=== PATIENT | female | born 1940 | race Caucasian/White ===

== ENCOUNTER 2019-06-13 21:24 | Inpatient (IN) ==
[2019-06-13] MEDS ORDERED: 0.9 % Sodium Chloride 1,000 ML IV ONE (21:49)
[2019-06-13 22:14] LABS: Basophils % 0.3 %; Eosinophils # 0.2 K/mcL (0.0-0.6); Eosinophils % 1.1 %; Hematocrit 30.5 % (35.3-44.9); Immature Granulocytes % 1.1 % (0-4); Lymphocytes # 2.2 K/mcL (0.6-4.6); Lymphocytes % 14.9 %; Mean Corpuscular HGB Conc 32.8 g/dL (31.6-35.5); Mean Corpuscular Hemoglobin 26.7 pg (28.0-33.3); Mean Corpuscular Volume 81.6 fL (83.0-100.0); Mean Platelet Volume 8.6 fL (9.4-12.4); Monocytes % 13.5 %; Neutrophils # 10.3 K/mcL (1.6-8.9); Platelet Count 294 K/mcL (140-400); Red Blood Count 3.74 M/mcL (3.82-4.97); Red Cell Distribution Width 16.8 % (11.5-14.5); Segmented Neutrophils % 69.1 %; White Blood Count 14.9 K/mcL (4.3-11.1)
[2019-06-13 22:17] LABS: Bilirubin,Urine Negative (Negative); Blood,Urine Trace-intact (Negative); Clarity,Urine Cloudy (Clear); Color,Urine Yellow (Yellow); Glucose,Urine (UA) Normal (Normal); Ketones,Urine Negative (Negative); Leukocyte Esterase,Urine Moderate (Negative); Nitrite,Urine Negative (Negative); Protein,Urine 30 mg/dL (Neg-Trace); Specific Gravity,Urine 1.015 (1.010-1.025); Urobilinogen,Urine Normal (Normal)
[2019-06-13 22:21] LABS: INR 1.2; Prothrombin Time 13.5 Seconds (9.4-12.1)
[2019-06-13 22:24] LABS: Bacteria,Urine Many per hpf (None-Few); RBC,Urine 0-3 per hpf (0-3); Squamous Epithelial Cell,Urine Few per lpf (None-Few); WBC,Urine 30-50 per hpf (0-3)
[2019-06-13 22:30] LABS: Albumin 3.7 g/dL (3.5-5.7); Albumin/Globulin Ratio 0.9 (1.1-2.2); Bilirubin,Total 0.5 mg/dL (0.3-1.0); Calcium 8.6 mg/dL (8.6-10.3); Globulin 3.9 g/dL (2.4-3.5); Magnesium 2.1 mg/dL (1.6-2.6); Potassium 3.5 mEq/L (3.5-5.1); Total Protein 7.6 g/dL (6.4-8.9)
[2019-06-14] MEDS ORDERED: *HR* Enoxaparin 100 MG/ML SYRINGE SQ SCH (00:30)
[2019-06-14] MEDS ORDERED: 0.9 % Sodium Chloride 1,000 ML IVC SCH (00:30)
[2019-06-14] MEDS ORDERED: Naloxone 0.4 MG/ML INJ IVP PRN (04:52)
[2019-06-14] MEDS: Acetaminophen 325 MG TABLET PO PRN ×3 (06:34→16:09)
[2019-06-14] MEDS: Levothyroxine 25 MCG TABLET PO SCH (06:34)
[2019-06-14] MEDS ORDERED: *HR* Enoxaparin 30 MG/0.3 ML SYRINGE SQ SCH (07:00)
[2019-06-14] MEDS ORDERED: Famotidine 20 MG TABLET PO SCH (07:30)
[2019-06-14] MEDS: Fenofibrate 54 MG TABLET PO SCH (08:18)
[2019-06-14] MEDS: Divalproex Sodium 125 MG CAPSULE PO SCH ×2 (08:18→20:45)
[2019-06-14] MEDS: Aspirin Enteric Coated 81 MG Tablet PO SCH (08:18)
[2019-06-14] MEDS: Gabapentin 300 MG CAPSULE PO SCH ×2 (08:18→14:59)
[2019-06-14] MEDS: Isosorbide MONOnitrate (24 HR) 30 MG TAB.ER.24H PO SCH (08:19)
[2019-06-14] MEDS: Loratadine 10 MG TABLET PO SCH (08:19)
[2019-06-14] MEDS: Metoprolol XL (24 HR) Succ 25 MG TAB.ER.24H PO SCH (08:19)
[2019-06-14] MEDS: Lubiprostone [Amitiza] 24 MCG PO SCH ×2 (08:20→20:50)
[2019-06-14] MEDS: 0.9 % Sodium Chloride 1,000 ML IVC SCH ×2 (08:20→18:13)
[2019-06-14] MEDS: Insulin LISPRO 300 UNITS/3 ML VIAL SQ SCH ×3 (08:20→16:48)
[2019-06-14] MEDS: Venlafaxine XR (24 HR) 37.5 MG CAP.ER.24H PO SCH (09:00)
[2019-06-14] MEDS ORDERED: *HR* SitaGLIPtin 25 MG TABLET PO SCH (09:00)
[2019-06-14] MEDS: *HR* Enoxaparin 80 MG/0.8 ML SYRINGE SQ SCH (09:00)
[2019-06-14] MEDS: cloZAPine 100 MG TABLET PO SCH ×3 (09:00→20:46)
[2019-06-14] MEDS ORDERED: Furosemide 40 MG TABLET PO SCH (09:00)
[2019-06-14 10:14] LABS: Hematocrit 26.4 % (35.3-44.9); Hemoglobin 8.3 g/dL (11.5-15.4); Mean Corpuscular HGB Conc 31.4 g/dL (31.6-35.5); Mean Corpuscular Volume 82.8 fL (83.0-100.0); Mean Platelet Volume 8.8 fL (9.4-12.4); Platelet Count 243 K/mcL (140-400); Red Blood Count 3.19 M/mcL (3.82-4.97); Red Cell Distribution Width 16.8 % (11.5-14.5); White Blood Count 14.4 K/mcL (4.3-11.1)
[2019-06-14 10:55] LABS: Calcium 7.8 mg/dL (8.6-10.3)
[2019-06-14] MEDS: cefTRIAXone 1,000 MG in 0.9 % Sodium Chloride Mini Bag 100 ML IVPB SCH (13:15)
[2019-06-14] MEDS ORDERED: *HR* Dextrose 50 % in Water (Vial) 50 ML VIAL IVP PRN (15:05)
[2019-06-14] MEDS ORDERED: D5% in Water 1,000 ML IVC PRN (15:05)
[2019-06-14] MEDS ORDERED: Dextrose Gel 15 GM/37.5 ML TUBE PO PRN ×2 (15:05)
[2019-06-14] MEDS: Famotidine 20 MG TABLET PO SCH (16:08)
[2019-06-14] MEDS ORDERED: 0.9 % Sodium Chloride 1,000 ML IVC ONE (16:19)
[2019-06-14] MEDS: Ibuprofen 600 MG TABLET PO PRN (20:45)
[2019-06-14] MEDS: Melatonin 3 MG TABLET PO SCH (20:45)
[2019-06-14 22:54] LABS: Enterococcus by PCR Not Detected (Not Detect); Staphylococcus aureus by PCR Not Detected (Not Detect); Staphylococcus by PCR Not Detected (Not Detect); blaKPC Carbapenem-Resist Gene Not Detected (Not Detect)
[2019-06-14 22:55] LABS: Acinetobacter baumannii by PCR Not Detected (Not Detect); Candida albicans by PCR Not Detected (Not Detect); Candida glabrata by PCR Not Detected (Not Detect); Candida krusei by PCR Not Detected (Not Detect); Candida parapsilosis by PCR Not Detected (Not Detect); Candida tropicalis by PCR Not Detected (Not Detect); Enterobacter cloacae Cmplx PCR Not Detected (Not Detect); Escherichia coli by PCR DETECTED (Not Detect); Klebsiella oxytoca by PCR Not Detected (Not Detect); Klebsiella pneumoniae by PCR Not Detected (Not Detect); Proteus by PCR Not Detected (Not Detect); Pseudomonas aeruginosa by PCR Not Detected (Not Detect); Serratia marcescens by PCR Not Detected (Not Detect); Streptococcus agalactiae(B)PCR Not Detected (Not Detect); Streptococcus by PCR Not Detected (Not Detect); Streptococcus pneumoniae PCR Not Detected (Not Detect); Streptococcus pyogenes (A) PCR Not Detected (Not Detect)
[2019-06-15] MEDS: 0.9 % Sodium Chloride 1,000 ML IVC SCH ×5 (02:21→18:41)
[2019-06-15] MEDS: Levothyroxine 25 MCG TABLET PO SCH (05:07)
[2019-06-15 06:26] LABS: Hematocrit 28.8 % (35.3-44.9); Hemoglobin 8.6 g/dL (11.5-15.4); Mean Corpuscular HGB Conc 29.9 g/dL (31.6-35.5); Mean Corpuscular Hemoglobin 26.3 pg (28.0-33.3); Mean Corpuscular Volume 88.1 fL (83.0-100.0); Mean Platelet Volume 8.9 fL (9.4-12.4); Platelet Count 198 K/mcL (140-400); Red Blood Count 3.27 M/mcL (3.82-4.97); Red Cell Distribution Width 16.9 % (11.5-14.5)
[2019-06-15 06:49] LABS: Calcium 7.8 mg/dL (8.6-10.3); Potassium 3.6 mEq/L (3.5-5.1)
[2019-06-15] MEDS: Insulin LISPRO 300 UNITS/3 ML VIAL SQ SCH ×4 (08:15→16:09)
[2019-06-15] MEDS: Venlafaxine XR (24 HR) 37.5 MG CAP.ER.24H PO SCH (10:12)
[2019-06-15] MEDS: cefTRIAXone 1,000 MG in 0.9 % Sodium Chloride Mini Bag 100 ML IVPB SCH (10:12)
[2019-06-15] MEDS: cloZAPine 100 MG TABLET PO SCH ×3 (10:12→19:55)
[2019-06-15] MEDS: Aspirin Enteric Coated 81 MG Tablet PO SCH (10:13)
[2019-06-15] MEDS: Isosorbide MONOnitrate (24 HR) 30 MG TAB.ER.24H PO SCH (10:13)
[2019-06-15] MEDS: Loratadine 10 MG TABLET PO SCH (10:13)
[2019-06-15] MEDS: Divalproex Sodium 125 MG CAPSULE PO SCH ×2 (10:13→19:55)
[2019-06-15] MEDS: Fenofibrate 54 MG TABLET PO SCH (10:13)
[2019-06-15] MEDS: Famotidine 20 MG TABLET PO SCH ×2 (10:13→15:04)
[2019-06-15] MEDS: Metoprolol XL (24 HR) Succ 25 MG TAB.ER.24H PO SCH (10:14)
[2019-06-15] MEDS: Lubiprostone [Amitiza] 24 MCG PO SCH ×2 (10:36→19:55)
[2019-06-15] MEDS: *HR* Enoxaparin 80 MG/0.8 ML SYRINGE SQ SCH (11:31)
[2019-06-15] MEDS: Acetaminophen 325 MG TABLET PO PRN ×2 (11:49→18:39)
[2019-06-15 16:44] LABS: Sodium, Urine 91.9 mEq/L
[2019-06-15] MEDS ORDERED: cefTRIAXone 2,000 MG in 0.9 % Sodium Chloride Mini Bag 100 ML IVPB SCH (18:00)
[2019-06-15] MEDS: Ibuprofen 600 MG TABLET PO PRN (19:54)
[2019-06-15] MEDS: Melatonin 3 MG TABLET PO SCH (19:54)
[2019-06-16] MEDS: *HR* Heparin 5,000 UNIT/ML VIAL SQ SCH ×4 (00:40→22:20)
[2019-06-16] MEDS: 0.9 % Sodium Chloride 1,000 ML IVC SCH ×3 (03:00→23:16)
[2019-06-16] MEDS: Levothyroxine 25 MCG TABLET PO SCH (06:27)
[2019-06-16 07:17] LABS: Hematocrit 23.8 % (35.3-44.9); Hemoglobin 7.6 g/dL (11.5-15.4); Mean Corpuscular HGB Conc 31.9 g/dL (31.6-35.5); Mean Corpuscular Hemoglobin 26.7 pg (28.0-33.3); Mean Corpuscular Volume 83.5 fL (83.0-100.0); Mean Platelet Volume 8.9 fL (9.4-12.4); Platelet Count 180 K/mcL (140-400); Red Blood Count 2.85 M/mcL (3.82-4.97); White Blood Count 10.1 K/mcL (4.3-11.1)
[2019-06-16 07:28] LABS: Calcium 7.8 mg/dL (8.6-10.3); Potassium 3.4 mEq/L (3.5-5.1)
[2019-06-16] MEDS: Insulin LISPRO 300 UNITS/3 ML VIAL SQ SCH ×3 (09:44→16:47)
[2019-06-16] MEDS: Lubiprostone [Amitiza] 24 MCG PO SCH ×2 (09:45→20:13)
[2019-06-16] MEDS: cloZAPine 100 MG TABLET PO SCH ×3 (09:50→20:02)
[2019-06-16] MEDS: Metoprolol XL (24 HR) Succ 25 MG TAB.ER.24H PO SCH (09:50)
[2019-06-16] MEDS: Fenofibrate 54 MG TABLET PO SCH (09:50)
[2019-06-16] MEDS: Divalproex Sodium 125 MG CAPSULE PO SCH ×2 (09:51→20:02)
[2019-06-16] MEDS: Isosorbide MONOnitrate (24 HR) 30 MG TAB.ER.24H PO SCH (09:51)
[2019-06-16] MEDS: Loratadine 10 MG TABLET PO SCH (09:51)
[2019-06-16] MEDS: Venlafaxine XR (24 HR) 37.5 MG CAP.ER.24H PO SCH (09:51)
[2019-06-16] MEDS: Aspirin Enteric Coated 81 MG Tablet PO SCH (09:52)
[2019-06-16] MEDS: Famotidine 20 MG TABLET PO SCH ×2 (09:54→14:55)
[2019-06-16] MEDS ORDERED: cefTRIAXone 2,000 MG in 0.9 % Sodium Chloride Mini Bag 100 ML IVPB SCH (11:00)
[2019-06-16] MEDS ORDERED: Gentamicin 70 MG in 0.9 % Sodium Chloride 100 ML IVPB ONE (16:00)
[2019-06-16 16:06] LABS: Hematocrit 29.4 % (35.3-44.9); Hemoglobin 9.4 g/dL (11.5-15.4)
[2019-06-16] MEDS ORDERED: Haloperidol Lactate 5 MG/ML VIAL IVP ONE (16:27)
[2019-06-16 19:16] LABS: Hematocrit 26.6 % (35.3-44.9); Hemoglobin 8.5 g/dL (11.5-15.4)
[2019-06-16] MEDS: Melatonin 3 MG TABLET PO SCH (20:02)
[2019-06-16] MEDS: Nystatin Cream 15 GM TUBE TP SCH (20:13)
[2019-06-16] MEDS: Acetaminophen 325 MG TABLET PO PRN (23:14)
[2019-06-17] MEDS: Levothyroxine 25 MCG TABLET PO SCH (05:29)
[2019-06-17 06:05] LABS: Hematocrit 23.3 % (35.3-44.9); Hemoglobin 7.3 g/dL (11.5-15.4); Mean Corpuscular HGB Conc 31.3 g/dL (31.6-35.5); Mean Corpuscular Hemoglobin 25.9 pg (28.0-33.3); Mean Corpuscular Volume 82.6 fL (83.0-100.0); Mean Platelet Volume 9.1 fL (9.4-12.4); Platelet Count 230 K/mcL (140-400); Red Blood Count 2.82 M/mcL (3.82-4.97); White Blood Count 12.1 K/mcL (4.3-11.1)
[2019-06-17 06:25] LABS: Calcium 7.8 mg/dL (8.6-10.3); Potassium 3.7 mEq/L (3.5-5.1)
[2019-06-17] MEDS: Famotidine 20 MG TABLET PO SCH ×3 (07:30→17:23)
[2019-06-17] MEDS: Insulin LISPRO 300 UNITS/3 ML VIAL SQ SCH ×3 (08:00→16:32)
[2019-06-17] MEDS: *HR* Heparin 5,000 UNIT/ML VIAL SQ SCH ×3 (08:00→23:18)
[2019-06-17] MEDS: Aspirin Enteric Coated 81 MG Tablet PO SCH (09:00)
[2019-06-17] MEDS: Venlafaxine XR (24 HR) 37.5 MG CAP.ER.24H PO SCH (09:00)
[2019-06-17] MEDS: Nystatin Cream 15 GM TUBE TP SCH ×3 (09:00→19:48)
[2019-06-17] MEDS: Fenofibrate 54 MG TABLET PO SCH (09:00)
[2019-06-17] MEDS: Loratadine 10 MG TABLET PO SCH (09:00)
[2019-06-17] MEDS: Divalproex Sodium 125 MG CAPSULE PO SCH ×2 (09:00→19:48)
[2019-06-17] MEDS: cloZAPine 100 MG TABLET PO SCH ×4 (09:00→19:48)
[2019-06-17] MEDS: Isosorbide MONOnitrate (24 HR) 30 MG TAB.ER.24H PO SCH (09:00)
[2019-06-17] MEDS: Metoprolol XL (24 HR) Succ 25 MG TAB.ER.24H PO SCH (09:00)
[2019-06-17 16:01] LABS: Hematocrit 24.1 % (35.3-44.9); Hemoglobin 7.8 g/dL (11.5-15.4)
[2019-06-17 16:07] LABS: Hemoglobin 7.9 g/dL (11.5-15.4)
[2019-06-17] MEDS: Lubiprostone [Amitiza] 24 MCG PO SCH ×2 (16:48→19:49)
[2019-06-17] MEDS: Gentamicin 50 MG in 0.9 % Sodium Chloride 100 ML IVPB SCH (17:25)
[2019-06-17] MEDS: Melatonin 3 MG TABLET PO SCH (19:48)
[2019-06-17 19:52] LABS: Hematocrit 24.8 % (35.3-44.9); Hemoglobin 7.9 g/dL (11.5-15.4)
[2019-06-18] MEDS: Levothyroxine 25 MCG TABLET PO SCH (05:18)
[2019-06-18 07:46] LABS: Hematocrit 22.7 % (35.3-44.9); Hemoglobin 7.5 g/dL (11.5-15.4); Mean Corpuscular Hemoglobin 26.5 pg (28.0-33.3); Mean Corpuscular Volume 80.2 fL (83.0-100.0); Platelet Count 272 K/mcL (140-400); Red Blood Count 2.83 M/mcL (3.82-4.97); Red Cell Distribution Width 17.2 % (11.5-14.5); White Blood Count 11.7 K/mcL (4.3-11.1)
[2019-06-18 08:06] LABS: Potassium 3.4 mEq/L (3.5-5.1)
[2019-06-18] MEDS: Insulin LISPRO 300 UNITS/3 ML VIAL SQ SCH ×3 (08:22→16:24)
[2019-06-18] MEDS: *HR* Heparin 5,000 UNIT/ML VIAL SQ SCH ×2 (10:19→16:24)
[2019-06-18] MEDS: Aspirin Enteric Coated 81 MG Tablet PO SCH (10:19)
[2019-06-18] MEDS: Loratadine 10 MG TABLET PO SCH (10:36)
[2019-06-18] MEDS: Metoprolol XL (24 HR) Succ 25 MG TAB.ER.24H PO SCH (10:36)
[2019-06-18] MEDS: Fenofibrate 54 MG TABLET PO SCH (10:36)
[2019-06-18] MEDS: Famotidine 20 MG TABLET PO SCH ×2 (10:36→16:25)
[2019-06-18] MEDS: Venlafaxine XR (24 HR) 37.5 MG CAP.ER.24H PO SCH (10:36)
[2019-06-18] MEDS: Isosorbide MONOnitrate (24 HR) 30 MG TAB.ER.24H PO SCH (10:37)
[2019-06-18] MEDS: Divalproex Sodium 125 MG CAPSULE PO SCH ×2 (10:37→20:00)
[2019-06-18] MEDS: cloZAPine 100 MG TABLET PO SCH ×3 (10:37→20:00)
[2019-06-18] MEDS: Nystatin Cream 15 GM TUBE TP SCH ×3 (10:43→20:00)
[2019-06-18] MEDS: Lubiprostone [Amitiza] 24 MCG PO SCH ×2 (10:43→20:00)
[2019-06-18] MEDS: Acetaminophen 325 MG TABLET PO PRN (11:41)
[2019-06-18] MEDS: Gentamicin 50 MG in 0.9 % Sodium Chloride 100 ML IVPB SCH (17:57)
[2019-06-18] MEDS: Melatonin 3 MG TABLET PO SCH (20:00)
[2019-06-19] MEDS: *HR* Heparin 5,000 UNIT/ML VIAL SQ SCH ×3 (00:45→16:04)
[2019-06-19] MEDS: Levothyroxine 25 MCG TABLET PO SCH (05:18)
[2019-06-19 07:45] LABS: Hematocrit 25.3 % (35.3-44.9); Hemoglobin 8.2 g/dL (11.5-15.4); Mean Corpuscular HGB Conc 32.4 g/dL (31.6-35.5); Mean Corpuscular Volume 80.3 fL (83.0-100.0); Platelet Count 338 K/mcL (140-400); Red Blood Count 3.15 M/mcL (3.82-4.97); Red Cell Distribution Width 17.5 % (11.5-14.5); White Blood Count 11.1 K/mcL (4.3-11.1)
[2019-06-19 08:03] LABS: Calcium 8.3 mg/dL (8.6-10.3); Potassium 3.5 mEq/L (3.5-5.1)
[2019-06-19] MEDS: Insulin LISPRO 300 UNITS/3 ML VIAL SQ SCH ×3 (08:19→16:06)
[2019-06-19] MEDS: Famotidine 20 MG TABLET PO SCH ×2 (08:22→16:07)
[2019-06-19] MEDS: Divalproex Sodium 125 MG CAPSULE PO SCH ×2 (08:23→20:29)
[2019-06-19] MEDS: Aspirin Enteric Coated 81 MG Tablet PO SCH (08:23)
[2019-06-19] MEDS: cloZAPine 100 MG TABLET PO SCH ×3 (08:23→20:39)
[2019-06-19] MEDS: Loratadine 10 MG TABLET PO SCH (08:23)
[2019-06-19] MEDS: Venlafaxine XR (24 HR) 37.5 MG CAP.ER.24H PO SCH (08:23)
[2019-06-19] MEDS: Lubiprostone [Amitiza] 24 MCG PO SCH ×2 (08:24→20:40)
[2019-06-19] MEDS: Fenofibrate 54 MG TABLET PO SCH (08:24)
[2019-06-19] MEDS: Metoprolol XL (24 HR) Succ 25 MG TAB.ER.24H PO SCH (08:24)
[2019-06-19] MEDS: Isosorbide MONOnitrate (24 HR) 30 MG TAB.ER.24H PO SCH (08:24)
[2019-06-19] MEDS: Nystatin Cream 15 GM TUBE TP SCH ×3 (08:24→20:40)
[2019-06-19 10:31] LABS: ABG Base Excess 0 mEq/L (-2 to 3); ABG HCO3 25 mEq/L (21-27); ABG Oxygen Saturation 99 % (95-98); ABG PCO2 41 mmHg (35-45); ABG PH 7.39 pH Units (7.32-7.45); ABG PO2 117 mmHg (85-104); ABG TCO2 26 mEq/L (20-26)
[2019-06-19] MEDS ORDERED: Isovue-370 500 ML BOTTLE PO ONE (12:06)
[2019-06-19] MEDS ORDERED: Melatonin 3 MG TABLET PO PRN (14:13)
[2019-06-19] MEDS: Gentamicin 50 MG in 0.9 % Sodium Chloride 100 ML IVPB SCH (16:19)
[2019-06-20] MEDS: *HR* Heparin 5,000 UNIT/ML VIAL SQ SCH ×2 (01:14→08:44)
[2019-06-20 07:23] LABS: Hemoglobin 8.7 g/dL (11.5-15.4); Mean Corpuscular HGB Conc 32.2 g/dL (31.6-35.5); Mean Corpuscular Hemoglobin 26.2 pg (28.0-33.3); Mean Corpuscular Volume 81.3 fL (83.0-100.0); Mean Platelet Volume 8.8 fL (9.4-12.4); Platelet Count 359 K/mcL (140-400); Red Blood Count 3.32 M/mcL (3.82-4.97); Red Cell Distribution Width 17.7 % (11.5-14.5); White Blood Count 13.5 K/mcL (4.3-11.1)
[2019-06-20] MEDS: Levothyroxine 25 MCG TABLET PO SCH (07:31)
[2019-06-20] MEDS: Insulin LISPRO 300 UNITS/3 ML VIAL SQ SCH ×2 (07:36→11:57)
[2019-06-20 07:39] LABS: Calcium 8.2 mg/dL (8.6-10.3); Potassium 3.6 mEq/L (3.5-5.1)
[2019-06-20] MEDS: Lubiprostone [Amitiza] 24 MCG PO SCH (07:47)
[2019-06-20] MEDS: Metoprolol XL (24 HR) Succ 25 MG TAB.ER.24H PO SCH (07:48)
[2019-06-20] MEDS: Isosorbide MONOnitrate (24 HR) 30 MG TAB.ER.24H PO SCH (07:48)
[2019-06-20] MEDS: Famotidine 20 MG TABLET PO SCH (08:43)
[2019-06-20] MEDS: Aspirin Enteric Coated 81 MG Tablet PO SCH (08:44)
[2019-06-20] MEDS: Loratadine 10 MG TABLET PO SCH (08:45)
[2019-06-20] MEDS: Divalproex Sodium 125 MG CAPSULE PO SCH (08:45)
[2019-06-20] MEDS: cloZAPine 100 MG TABLET PO SCH (08:45)
[2019-06-20] MEDS: Fenofibrate 54 MG TABLET PO SCH (08:46)
[2019-06-20] MEDS: Nystatin Cream 15 GM TUBE TP SCH (08:46)
[2019-06-20] MEDS: Venlafaxine XR (24 HR) 37.5 MG CAP.ER.24H PO SCH (08:46)
[2019-06-20 11:44] VITALS: BP 120/72
[2019-06-20 18:04] LABS: Estimated Average Glucose 157 mg/dl
[2019-06-20] MEDS ORDERED: Aminoglycoside Consult 1 EACH MC ONE (18:04)
== END 2019-06-20 18:05 | DRG 720 ==
LOC: EMEROOPIK 21:24 → INPPIK 21:24
PROVIDERS: ADMIT Family Medicine; ATTEND Family Medicine